=== PATIENT | male | born 1955 | race Caucasian/White ===

== ENCOUNTER → 2016-03-09 | Outpatient (CLI) | payer MEDICAID ==
[~2016-03-09] MED LIST: ATIVAN 2MG2 MG PO
== END ==
LOC: LAB 12:45
DX: D50.0 Iron deficiency anemia secondary to blood loss (chronic) (principal); K85.20 Alcohol induced acute pancreatitis without necrosis or infection; I10 Essential (primary) hypertension; K28.0 Acute gastrojejunal ulcer with hemorrhage

== ENCOUNTER 2017-05-13 16:13 | Emergency (ER) | payer MEDICARE ==
[~2017-05-13] VITALS: Ht 172.7 cm; Wt 75.0 kg
[2017-05-13 17:12] LABS: HEMATOCRIT 40.6 % (42.0-52.0); HEMOGLOBIN 14.1 g/dL (13.5-18.0); MEAN CELL VOLUME 95 fl (78-100); MEAN CORPUSCULAR HEMOGLOBIN 33 pg (27-31); MEAN CORPUSCULAR HGB CONC 35 g/dL (33-37); MEAN PLATELET VOLUME 10.9 fl (7.4-10.4); PLATELET COUNT 106 K/mm3 (130-400); RED BLOOD COUNT 4.29 M/mm3 (4.20-5.60); WHITE BLOOD COUNT 3.8 K/mm3 (4.8-10.8)
[2017-05-13 17:29] LABS: ALBUMIN 4.5 g/dL (3.5-5.0); BUN/CREATININE RATIO 17.5 (6.0-26.0); CALCIUM 8.4 mg/dL (8.4-10.2); POTASSIUM 3.7 mmol/L (3.6-5.0); TOTAL BILIRUBIN 0.6 mg/dL (0.2-1.3); TOTAL PROTEIN 7.9 g/dL (6.3-8.2)
[2017-05-13 17:51] LABS: LYMPHOCYTE 39 % (20-51); MONOCYTE 14 % (3-10); NEUTROPHILS 45 % (42-75)
[2017-05-14 03:24] LABS: URINE APPEARANCE CLEAR; URINE COLOR YELLOW
[2017-05-14 03:25] LABS: URINE BILIRUBIN NEGATIVE (NEGATIVE); URINE BLOOD NEGATIVE (NEGATIVE); URINE GLUCOSE NEGATIVE (NEGATIVE); URINE KETONE 1+ (NEGATIVE); URINE LEUKOCYTE ESTERASE NEGATIVE (NEGATIVE); URINE NITRATE NEGATIVE (NEGATIVE); URINE PROTEIN(semi-quant) 1+ mg/dL (NEGATIVE); URINE UROBILINOGEN NORMAL (NORMAL); URINE WBC 0-1 /hpf (0-3)
[2017-05-14] MEDS ORDERED: LISINOPRIL20 MG PO (09:35)
[2017-05-14 10:01] VITALS: BP 192/110
== END 2017-05-14 12:36 | disposition home or self-care (01) ==
LOC: ED 16:13
PROVIDERS: Family Medicine
DX: F10.220 Alcohol dependence with intoxication, uncomplicated (principal); Y90.8 Blood alcohol level of 240 mg/100 ml or more; R25.1 Tremor, unspecified; R03.0 Elevated blood-pressure reading, without diagnosis of hypertension; T46.4X6A Underdosing of angiotensin-converting-enzyme inhibitors, initial encounter; Z91.128 Patient's intentional underdosing of medication regimen for other reason
CPT/HCPCS: J2060; J2405; J2765; J3411; J3490; J7030